=== PATIENT | female | born 1980 | race Caucasian/White ===

== ENCOUNTER 2018-08-17 15:35 | Inpatient (IN) | payer OTHER ==
[~2018-08-17] VITALS: Ht 170 cm; Wt 94.8 kg
[2018-08-17] MEDS ORDERED: GLYB2.5 PO (16:00)
[2018-08-17] MEDS ORDERED: FOLI1 PO (16:00)
[2018-08-17] MEDS ORDERED: CALC-1038 PO (16:00)
[2018-08-17] MEDS ORDERED: PNV11TAB PO (16:00)
[2018-08-17 16:01] VITALS: BP 132/76
[2018-08-17] MEDS ORDERED: OXYTOCIN 30 UNITS/LACT RINGERS 500 ML IV ONE (16:19)
[2018-08-17] MEDS ORDERED: RINGERS SOLUTION,LACTATED 1,000 ML IV PRN (16:19)
[2018-08-17] MEDS ORDERED: CITRIC ACID/SODIUM CITRATE 30 ML SOLUTION UDCUP PO PRN (16:30)
[2018-08-17] MEDS ORDERED: METOCLOPRAMIDE HCL 5 MG/ML 2 ML VIAL IVP PRN (16:30)
[2018-08-17] MEDS ORDERED: LIDOCAINE/PF 1% 30 ML VIAL INJ PRN (16:30)
[2018-08-17] MEDS ORDERED: NIFEdipine 10 MG CAPSULE PO ONE (16:30)
[2018-08-17] MEDS ORDERED: BETAMETHASONE SOLUSPAN 6 MG/ML 5 ML VIAL IM SCH (16:30)
[2018-08-17] MEDS: RINGERS SOLUTION,LACTATED 1,000 ML IV SCH ×3 (16:41→21:10)
[2018-08-17 16:51] LABS: BASOPHILS % (AUTO) 0.3 % (0.0-2.0); EOSINOPHILS % (AUTO) 0.2 % (1.0-6.0); HEMATOCRIT 32.3 % (36-46); HEMOGLOBIN 11.3 g/dL (12.0-16.0); LYMPHOCYTES # (AUTO) 1.7 K/uL (1.0-4.8); LYMPHOCYTES % (AUTO) 16.8 % (22.0-44.0); MEAN CORPUSCULAR HEMOGLOBIN 32.1 pg (26.0-34.0); MEAN CORPUSCULAR VOLUME 92 fL (80-100); MONOCYTES # (AUTO) 0.6 K/uL (0.1-1.0); MONOCYTES % (AUTO) 6.2 % (2.0-9.0); NEUTROPHILS # (AUTO) 7.9 K/uL (1.8-7.7); NEUTROPHILS % (AUTO) 76.5 % (40.0-70.0); PLATELET COUNT (AUTO)-OB 215 K/uL (150-450); RED BLOOD CELL COUNT(AUTO) 3.52 MIL/uL (4.00-5.20); RED CELL DISTRIBUTION WIDTH 14.2 % (11.5-14.5)
[2018-08-17 16:54] LABS: GLUCOMETER DEV NAME(LOC) 4S 8; GLUCOSE,POINT OF CARE 119 MG/DL (70-110)
[2018-08-17] MEDS ORDERED: AMPICILLIN SODIUM 2 GM/NS 100 ML IV ONE (17:15)
[2018-08-17] MEDS: FentaNYL CITRATE-PF 100 MCG/2 ML VIAL IVP PRN ×3 (17:38→20:01)
[2018-08-17] MEDS ORDERED: OXYGEN THERAPY IH SCH (20:00)
[2018-08-17] MEDS ORDERED: ROPIVACAINE HCL/PF 0.2% 100 ML ED ONE (20:23)
[2018-08-17] MEDS ORDERED: ONDANSETRON HCL 4 MG/2 ML VIAL IVP PRN (21:00)
[2018-08-17] MEDS ORDERED: DiphenhydrAMINE HCL 50 MG/ML VIAL IVP PRN (21:00)
[2018-08-17] MEDS ORDERED: ROPIVACAINE HCL/PF 0.2% 100 ML ED PRN (21:00)
[2018-08-17] MEDS ORDERED: AMPICILLIN SODIUM 1 GM/NS 50 ML IV SCH (21:15)
[2018-08-17] MEDS ORDERED: FentaNYL CITRATE-PF 100 MCG/2 ML VIAL ONE (22:52)
[2018-08-18] MEDS ORDERED: OXYTOCIN 20 UNITS/LACT RINGERS 1,000 ML IV ONE ×2 (00:49→01:45)
[2018-08-18] MEDS ORDERED: LANOLIN 7 GM OINTMENT TP PRN (01:45)
[2018-08-18] MEDS ORDERED: ACETAMINOPHEN/CODEINE 300-30 MG TABLET PO PRN (01:45)
[2018-08-18] MEDS ORDERED: IBUPROFEN 600 MG TABLET PO PRN (01:45)
[2018-08-18] MEDS ORDERED: MAGNESIUM HYDROXIDE SUSPENSION 30 ML UDCUP PO PRN (01:45)
[2018-08-18] MEDS ORDERED: SENNA/DOCUSATE SODIUM 8.6-50 MG TABLET PO PRN (01:45)
[2018-08-18] MEDS: BENZOCAINE 20%/MENTHOL 56 GM SPRAY CANISTER TP PRN (02:37)
[2018-08-18] MEDS: GLYCERIN/WITCH HAZEL LEAF 40 PADS JAR TP PRN (02:37)
[2018-08-18] MEDS ORDERED: BETAMETHASONE SOLUSPAN 6 MG/ML 5 ML VIAL IM SCH (04:30)
[2018-08-18] MEDS: LEVOTHYROXINE SODIUM 100 MCG TABLET PO SCH (08:30)
[2018-08-19] MEDS: LEVOTHYROXINE SODIUM 100 MCG TABLET PO SCH (06:31)
[2018-08-19] MEDS: GLYCERIN/WITCH HAZEL LEAF 40 PADS JAR TP PRN (06:35)
[2018-08-19] MEDS: BENZOCAINE 20%/MENTHOL 56 GM SPRAY CANISTER TP PRN (06:35)
[2018-08-19 06:39] LABS: BASOPHILS % (AUTO) 0.3 % (0.0-2.0); EOSINOPHILS % (AUTO) 0.6 % (1.0-6.0); HEMATOCRIT 30.9 % (36-46); HEMOGLOBIN 10.8 g/dL (12.0-16.0); LYMPHOCYTES # (AUTO) 2.8 K/uL (1.0-4.8); LYMPHOCYTES % (AUTO) 27.1 % (22.0-44.0); MEAN CORPUSCULAR HEMOGLOBIN 32.8 pg (26.0-34.0); MEAN CORPUSCULAR VOLUME 94 fL (80-100); MONOCYTES # (AUTO) 0.8 K/uL (0.1-1.0); MONOCYTES % (AUTO) 7.2 % (2.0-9.0); NEUTROPHILS # (AUTO) 6.8 K/uL (1.8-7.7); NEUTROPHILS % (AUTO) 64.8 % (40.0-70.0); PLATELET COUNT (AUTO)-OB 218 K/uL (150-450); RED CELL DISTRIBUTION WIDTH 15.1 % (11.5-14.5)
[2018-08-19] MEDS ORDERED: IBUP-2070 PO (08:49)
[2018-08-19] MEDS ORDERED: DSS100 PO (08:50)
== END 2018-08-19 10:55 | disposition home or self-care (01) | DRG 807 ==
LOC: 4S 15:35 → OBSVTOIN 15:35
PROVIDERS: ADMIT Obstetrics & Gynecology; ATTEND Obstetrics & Gynecology
PROC: 10E0XZZ Delivery of Products of Conception, External Approach (ICD-10-PCS; principal; 2018-08-18)
PROC: 0KQM0ZZ Repair Perineum Muscle, Open Approach (ICD-10-PCS; 2018-08-18)
PROC: 3E0R3BZ Introduction of Anesthetic Agent into Spinal Canal, Percutaneous Approach (ICD-10-PCS; 2018-08-18)
PROC: 00HU33Z Insertion of Infusion Device into Spinal Canal, Percutaneous Approach (ICD-10-PCS; 2018-08-18)
DX: O70.1 Second degree perineal laceration during delivery (principal); Z37.0 Single live birth; Z3A.36 36 weeks gestation of pregnancy
CPT/HCPCS: 86850; 86900; 86901; J0290; J0702; J2590; J2795; J3010; J3490; J7120